=== PATIENT | female | born 1960 | race Caucasian/White ===

== ENCOUNTER 2017-05-10 12:20 | Outpatient (CLI) | payer OTHER, SELFPAY ==
[2017-05-10 12:58] LABS: #Basophils 0.2 thou/uL (0.0-0.2); #Eosinphils 0.2 thou/uL (0.0-0.7); #Lymphocytes 2.9 thou/uL (1.20-3.40); #Monocytes 0.8 thou/uL (0.11-0.59); #Neutrophils 12.4 thou/uL (1.40-6.50); %Eosinophils 0.9 % (0.0-10.0); %Lymphocytes 17.4 % (21.0-51.0); %Monocytes 5.1 % (0.0-10.0); %Neutrophils 75.5 % (42.0-75.0); Hemoglobin 13.9 g/dL (12.0-16.0); Mean Corpuscular HGB CONC 32.3 g/dL (32.0-36.0); Mean Corpuscular Hemoglobin 29.1 pg (27.0-31.0); Mean Platelet Volume 7.2 fL (7.4-10.4); Platelet Count 390 thou/uL (130-400); RBC Distribution Width 12.6 % (11.5-14.5); Red Blood Cell (RBC) Count 4.76 mill/uL (4.20-5.40); White Blood Cell (WBC) Count 16.4 thou/uL (4.8-10.8)
[2017-05-10 13:14] LABS: ALT (SGPT) 18 U/L (8-55); AST (SGOT) 15 U/L (5-34); Albumin 4.3 g/dL (3.5-5.0); Alkaline Phosphatase 104 U/L (40-150); Anion Gap 15 mmol/L (10-20); BUN (Urea Nitrogen) 9 mg/dL (9.8-20.1); Bilirubin, Total 0.5 mg/dL (0.2-1.2); Calc. Creatinine Clearance 0 mL/min (70-130); Calcium 9.3 mg/dL (7.8-10.44); Carbon Dioxide 25 mmol/L (22-29); Cardiac Risk 5.4 (Less than 4.5); Chloride 105 mmol/L (98-107); Cholesterol 210 mg/dl (< 200 Desired); Estimated GFR-MDRD 84; Globulin 2.6 g/dL (2.4-3.5); Glucose 85 mg/dL (70-105); HDL Cholesterol 39 mg/dL (>60 Neg Risk); LDL Cholesterol, Calculated 154 mg/dL; Lipase 12 U/L (8-78); Potassium 4.4 mmol/L (3.5-5.1); Protein, Total 6.9 g/dL (6.0-8.3); Sodium 141 mmol/L (136-145); Triglycerides 85 mg/dL (Less than 150)
--- NOTE | 2017-05-10 14:11 | RAD ---
TWO VIEWS CHEST: 05/10/2017 PROVIDED CLINICAL HISTORY: Cervicalgia. COMPARISON: No comparison exams. FINDINGS: The cardiac and mediastinal silhouette is within normal limits. The lungs appear clear. No pleural fluid or pneumothorax apparent. IMPRESSION: No evidence for an acute cardiopulmonary process. POS: OFF
--- NOTE | 2017-05-10 14:17 | RAD ---
TWO VIEWS RIGHT SHOULDER: 05/10/2017 PROVIDED CLINICAL HISTORY: Right shoulder pain. FINDINGS: There is no evidence for fracture. The subacromial space appears preserved. The acromioclavicular j oint demonstrates mild degenerative change. The visualized right lung field appears clear. The merna ohumeral relationship is not well assessed without an axillary or scapular Y view. IMPRESSION: Acromioclavicular joint osteoarthrosis. POS: OFF
--- NOTE | 2017-05-10 14:21 | RAD ---
LEFT SHOULDER RADIOGRAPHS TWO VIEWS: 05/10/2017 PROVIDED CLINICAL HISTORY: Chronic left shoulder pain. FINDINGS: There is no evidence for fracture. The glenohumeral relationship is not well assessed without an axi llary or scapular Y view. The subacromial space appears preserved. The acromioclavicular joint appe ars unremarkable. The visualized left lung field appears free of significant opacity. IMPRESSION: Unremarkable frontal left shoulder radiographs. POS: OFF
== END 2017-05-10 12:21 | disposition home or self-care (01) ==
LOC: MADLABBHPM 12:20
PROVIDERS: ATTEND Family Medicine
DX: M54.2 Cervicalgia (principal); E78.5 Hyperlipidemia, unspecified; R10.12 Left upper quadrant pain
CPT/HCPCS: 71046; 80053; 80061; 83690; 85025

== ENCOUNTER 2017-06-07 11:36 | Outpatient (CLI) | payer OTHER ==
--- NOTE | 2017-06-07 14:18 | RAD ---
FOUR VIEWS OF THE CERVICAL SPINE: Date: 06-07-17 Comparison: 12-04-11 History: Cervical spine pain. FINDINGS: There is osseous fusion of the C3-4 vertebral bodies and facet joints. Frontal imaging demonstrates b ilateral mid cervical spine facet and uncal vertebral osteophyte formation, left greater than right, most prominent at C4-5 and C5-6. No prevertebral soft tissue swelling is seen. There is no anterolisthesis or retrolisthesis noted. C1-2 articulation is not well assessed on frontal imaging secondary to overlapping dental and osseous structures. IMPRESSION: Stable appearance of the cervical spine demonstrating C2-3 fusion and areas of degenerative change. F indings could be better assessed via CT or MRI as clinically warranted. POS: [facility]
== END 2017-06-07 11:37 | disposition home or self-care (01) ==
LOC: MADRAD 11:36
PROVIDERS: ATTEND Family Medicine
DX: M54.2 Cervicalgia (principal); M47.892 Other spondylosis, cervical region; Z98.1 Arthrodesis status
CPT/HCPCS: 72040

== ENCOUNTER 2018-08-30 12:55 | Outpatient (CLI) | payer OTHER ==
[2018-08-30 15:14] LABS: Hemoglobin 13.3 g/dL (12.0-16.0); Mean Corpuscular HGB CONC 32.2 g/dL (32.0-36.0); Mean Corpuscular Volume 86.9 fL (78.0-98.0); Mean Platelet Volume 7.1 fL (7.4-10.4); Platelet Count 329 thou/uL (130-400); RBC Distribution Width 12.7 % (11.5-14.5); Red Blood Cell (RBC) Count 4.75 mill/uL (4.20-5.40); White Blood Cell (WBC) Count 13.5 thou/uL (4.8-10.8)
[2018-08-31 10:09] LABS: Band 7 % (5-11); Eosinophils 1 % (0-10); Lymphocytes 19 % (21-51); MDiff Complete? YES; Monocytes 3 % (0-10); Neutrophil 70 % (42-75)
[2018-08-31 10:10] LABS: Platelet Morphology Comment Appears Adequate
== END 2018-08-30 12:56 | disposition home or self-care (01) ==
LOC: MADLABBHPM 12:55
PROVIDERS: ATTEND Family Medicine
DX: D72.829 Elevated white blood cell count, unspecified (principal)
CPT/HCPCS: 36415; 85007; 85027; 85060

== ENCOUNTER 2018-09-17 16:37 | Emergency (ER) | payer OTHER ==
[~2018-09-17 16:37] MED LIST: Iopamidol 370 76% 100 ML VIAL ONE
[2018-09-17 17:26] LABS: #Basophils 0.1 thou/uL (0.0-0.2); #Eosinphils 0.1 thou/uL (0.0-0.7); #Lymphocytes 2.9 thou/uL (1.20-3.40); #Monocytes 0.6 thou/uL (0.11-0.59); %Basophils 1.4 % (0.0-1.0); %Eosinophils 1.7 % (0.0-10.0); %Lymphocytes 32.8 % (21.0-51.0); Hemoglobin 13.8 g/dL (12.0-16.0); Mean Corpuscular HGB CONC 32.2 g/dL (32.0-36.0); Mean Corpuscular Hemoglobin 27.9 pg (27.0-31.0); Mean Corpuscular Volume 86.6 fL (78.0-98.0); Mean Platelet Volume 7.6 fL (7.4-10.4); Platelet Count 347 thou/uL (130-400); RBC Distribution Width 12.7 % (11.5-14.5); Red Blood Cell (RBC) Count 4.95 mill/uL (4.20-5.40); White Blood Cell (WBC) Count 8.8 thou/uL (4.8-10.8)
[2018-09-17 17:44] LABS: ALT (SGPT) 18 U/L (8-55); AST (SGOT) 13 U/L (5-34); Albumin 4.1 g/dL (3.5-5.0); Alkaline Phosphatase 124 U/L (40-150); Anion Gap 15 mmol/L (10-20); BUN (Urea Nitrogen) 5 mg/dL (9.8-20.1); Bilirubin, Total 0.3 mg/dL (0.2-1.2); Calc. Creatinine Clearance 0 mL/min (70-130); Calcium 8.8 mg/dL (7.8-10.44); Carbon Dioxide 26 mmol/L (22-29); Chloride 105 mmol/L (98-107); Estimated GFR-MDRD 85; Glucose 73 mg/dL (70-105); Potassium 3.8 mmol/L (3.5-5.1); Protein, Total 7.1 g/dL (6.0-8.3); Sodium 142 mmol/L (136-145)
[2018-09-17 17:53] LABS: Bilirubin Negative (Negative); Blood, Urine Negative (Negative); Clarity Clear (Clear); Glucose, Urine (Dipstick) Negative (Negative); Leukocyte Negative (Negative); Nitrite Negative (Negative); Protein, Urine (Dipstick) Negative (Neg-Trace); Urobilinogen 0.2 mg/dL (Less than 2)
[2018-09-17] MEDS ORDERED: Ondansetron PF 4 MG/2 ML Vial ONE (19:36)
--- NOTE | 2018-09-17 20:31 | CT ---
CT ABDOMEN AND PELVIS WITH IV CONTRAST: 09/17/2018 HISTORY: Right lower quadrant abdominal pain for five days. History of colonoscopy on 09/07/2018. COMPARISON: None available. FINDINGS: There is atelectasis versus mild scarring in the region of the lingula and at the inferior aspect of the right upper lobe. Dependent atelectasis is present at each lung base. There is a low density area seen within the anterior aspect, lateral portion of the medial segment, r ight hepatic lobe, likely related to perfusion or focal area of fatty infiltration. There is a subce ntimeter, [id number]-characterize, hypodense lesion in the posterior segment, right hepatic lobe. The portal vein is patent. The spleen, pancreas, bilateral adrenal glands, and left kidney demonstrate a normal CT appearance. There is a subcentimeter, [id number]-characterize, hypodense lesion, inferior pole, right kidney. The urinary bladder has a normal appearance. The opacified bowel is normal in appearance and is normal in caliber. The appendix is visualized and is normal in caliber. The uterus is not visualized, likely related to prior hysterectomy. There is a tiny, fat-containing umbilical hernia. The abdominal aorta is normal in caliber. Minimal vascular calcifications are seen in the infrarenal abdominal aorta and in the right common iliac artery. Mild degenerative changes are seen in the lower thoracic spine. IMPRESSION: 1. No acute findings are seen in the abdomen or pelvis. 2. Subcentimeter, [id number]-[id number]-[id number]-characterize, hypodense lesion, right hepatic lobe, as well as a subc entimeter, [id number]-[id number]-[id number]-characterize, hypodense lesion, inferior pole, right kidney. 3. Hysterectomy. 4. No CT evidence of appendicitis. 5. Colonic diverticulosis involving the ascending colon. POS: [facility]
== END 2018-09-17 20:59 | disposition home or self-care (01) ==
LOC: MADERS 16:37
DX: R10.31 Right lower quadrant pain (principal); K21.9 Gastro-esophageal reflux disease without esophagitis; E78.5 Hyperlipidemia, unspecified; G47.00 Insomnia, unspecified; F41.9 Anxiety disorder, unspecified; F32.9 Major depressive disorder, single episode, unspecified; F17.210 Nicotine dependence, cigarettes, uncomplicated; Z79.899 Other long term (current) drug therapy; Z79.82 Long term (current) use of aspirin
CPT/HCPCS: 74177; 80053; 81003; 83605; 85025; 96374; 99406; J2405; Q9967

== ENCOUNTER 2021-08-31 13:49 | Emergency (ER) | payer OTHER ==
[2021-08-31] MEDS ORDERED: Sodium Chloride 0.9% 1,000 ML ONE (14:54)
[2021-08-31 15:23] LABS: Bilirubin Moderate (Negative); Blood, Urine Negative (Negative); Glucose, Urine (Dipstick) Negative (Negative); Ketone, Urine 15 mg/dL (Negative); Leukocyte Trace (Negative); Nitrite Positive (Negative); Protein, Urine (Dipstick) 30 mg/dL (Neg-Trace); Specific Gravity, Urine 1.015 (1.005-1.030)
[2021-08-31 15:24] LABS: Clarity Hazy (Clear)
[2021-08-31 15:27] LABS: #Basophils 0.1 thou/uL (0.0-0.2); #Lymphocytes 1.5 thou/uL (1.20-3.40); #Monocytes 0.9 thou/uL (0.11-0.59); #Neutrophils 12.4 thou/uL (1.40-6.50); %Basophils 0.5 % (0.0-1.0); %Monocytes 6.1 % (0.0-10.0); %Neutrophils 83.4 % (42.0-75.0); Hemoglobin 15.2 g/dL (12.0-16.0); Mean Corpuscular Volume 81.3 fL (78.0-98.0); Mean Platelet Volume 9.8 fL (7.4-10.4); Platelet Count 242 thou/uL (130-400); RBC Distribution Width 13.5 % (11.5-14.5); Red Blood Cell (RBC) Count 5.85 mill/uL (4.20-5.40); White Blood Cell (WBC) Count 14.8 thou/uL (4.8-10.8)
[2021-08-31 15:29] LABS: Bacteria/HPF 2+ HPF (None Seen); RBC/HPF 0-3 HPF (0-3)
[2021-08-31 15:35] LABS: ALT (SGPT) 85 U/L (8-55); AST (SGOT) 59 U/L (5-34); Albumin 3.9 g/dL (3.5-5.0); Alkaline Phosphatase 107 U/L (40-110); Anion Gap 17 mmol/L (10-20); BUN (Urea Nitrogen) 11 mg/dL (9.8-20.1); Bilirubin, Total 0.7 mg/dL (0.2-1.2); Calc. Creatinine Clearance 0 mL/min (70-130); Calcium 8.6 mg/dL (7.8-10.44); Carbon Dioxide 24 mmol/L (22-29); Chloride 102 mmol/L (98-107); Estimated GFR 77; Globulin 2.9 g/dL (2.4-3.5); Glucose 101 mg/dL (70-105); Magnesium 1.6 mg/dL (1.6-2.6); Potassium 3.4 mmol/L (3.5-5.1); Protein, Total 6.8 g/dL (6.0-8.3); Sodium 140 mmol/L (136-145)
== END 2021-08-31 16:37 | disposition home or self-care (01) ==
LOC: MADERS 13:49
DX: U07.1 COVID-19 (principal); E86.0 Dehydration; R29.700 NIHSS score 0; R42 Dizziness and giddiness; K21.9 Gastro-esophageal reflux disease without esophagitis; E78.5 Hyperlipidemia, unspecified; M19.90 Unspecified osteoarthritis, unspecified site; G47.00 Insomnia, unspecified
CPT/HCPCS: 71045; 80053; 81003; 81015; 83605; 83735; 84443; 84484; 85025; 85379; 87086; 94760; 96360; J7050

== ENCOUNTER 2021-11-24 12:54 | Outpatient (CLI) | payer OTHER | END 2021-11-24 12:55 | disposition home or self-care (01) | LOC: MADULT 12:54 | PROVIDERS: ATTEND Internal Medicine Gastroenterology | DX: R10.9 Unspecified abdominal pain (principal); R93.2 Abnormal findings on diagnostic imaging of liver and biliary tract; R19.8 Other specified symptoms and signs involving the digestive system and abdomen | CPT/HCPCS: 76700 ==

== ENCOUNTER 2022-06-01 12:06 | Outpatient (CLI) | payer OTHER | END 2022-06-01 12:07 | disposition home or self-care (01) | LOC: MADRAD 12:06 | PROVIDERS: ATTEND Internal Medicine | DX: R06.00 Dyspnea, unspecified (principal) | CPT/HCPCS: 71046 ==

== ENCOUNTER 2022-11-30 18:02 | Emergency (ER) | payer OTHER ==
[2022-11-30] MEDS ORDERED: Ketorolac Tromethamine 30 MG/ML VIAL ONE (18:31)
[2022-11-30 18:44] LABS: #Basophils 0.1 thou/uL (0.0-0.2); #Lymphocytes 1.4 thou/uL (1.20-3.40); #Monocytes 0.2 thou/uL (0.11-0.59); #Neutrophils 11.1 thou/uL (1.40-6.50); %Basophils 0.6 % (0.0-1.0); %Eosinophils 0.1 % (0.0-10.0); %Lymphocytes 10.8 % (21.0-51.0); %Monocytes 1.5 % (0.0-10.0); %Neutrophils 87.1 % (42.0-75.0); Hematocrit 43.6 % (36.0-47.0); Hemoglobin 13.9 g/dL (12.0-16.0); Mean Corpuscular HGB CONC 31.9 g/dL (32.0-36.0); Mean Corpuscular Volume 87.9 fl (78.0-98.0); Mean Platelet Volume 7.8 fL (7.4-10.4); Platelet Count 376 10x3/uL (130-400); RBC Distribution Width 13.5 % (11.5-14.5); Red Blood Cell (RBC) Count 4.97 mill/uL (4.20-5.40); White Blood Cell (WBC) Count 12.7 10x3/uL (4.8-10.8)
[2022-11-30 18:49] LABS: INR-International Normal Ratio 0.9; Prothrombin Time 12.7 sec (12.0-14.7)
[2022-11-30 18:55] LABS: Bilirubin Negative (Negative); Blood, Urine Negative (Negative); CAUTI Indications for Culture Pelvic or flank pain; Clarity Cloudy (Clear); Glucose, Urine (Dipstick) Negative (Negative); Ketone, Urine Negative (Negative); Leukocyte Negative (Negative); Nitrite Negative (Negative); Protein, Urine (Dipstick) Negative (Neg-Trace); Specific Gravity, Urine 1.015 (1.005-1.030); Urobilinogen 0.2 mg/dL (Less than 2); pH, Urine 8.5 (5.0-9.0)
[2022-11-30 18:58] LABS: ALT (SGPT) 105 U/L (8-55); AST (SGOT) 115 U/L (5-34); Albumin 3.8 g/dL (3.5-5.0); Alkaline Phosphatase 109 U/L (40-110); Anion Gap 14 mmol/L (10-20); BUN (Urea Nitrogen) 17 mg/dL (9.8-20.1); Bilirubin, Total 0.4 mg/dL (0.2-1.2); Calc. Creatinine Clearance 0 mL/min (70-130); Calcium 9.3 mg/dL (7.8-10.44); Carbon Dioxide 26 mmol/L (22-29); Chloride 101 mmol/L (98-107); Estimated GFR 82; Globulin 3.1 g/dL (2.4-3.5); Glucose 152 mg/dL (70-105); Lipase 19 U/L (8-78); Potassium 4.2 mmol/L (3.5-5.1); Protein, Total 6.9 g/dL (6.0-8.3); Sodium 137 mmol/L (136-145)
[2022-11-30 18:59] LABS: Troponin I Less than 0.010 ng/mL (< 0.028)
[2022-11-30 19:00] LABS: Bacteria/HPF 2+ HPF (None Seen); RBC/HPF None Seen HPF (0-3); WBC/HPF 0-3 HPF (0-3)
[2022-11-30 19:01] LABS: Urine Culture Reflex No No
== END 2022-11-30 20:08 | disposition home or self-care (01) ==
LOC: MADERS 18:02
DX: R10.13 Epigastric pain (principal); M54.6 Pain in thoracic spine; E78.5 Hyperlipidemia, unspecified; G47.00 Insomnia, unspecified; F17.210 Nicotine dependence, cigarettes, uncomplicated; Z79.899 Other long term (current) drug therapy; Z79.82 Long term (current) use of aspirin
CPT/HCPCS: 36415; 74176; 80053; 81001; 83690; 84484; 85025; 85610; 93005; 96374; J1885

== ENCOUNTER 2022-12-02 20:18 | Emergency (ER) | payer OTHER ==
[2022-12-02 21:40] LABS: #Basophils 0.3 thou/uL (0.0-0.2); #Eosinphils 0.2 thou/uL (0.0-0.7); #Lymphocytes 1.7 thou/uL (1.20-3.40); #Monocytes 1.4 thou/uL (0.11-0.59); #Neutrophils 10.7 thou/uL (1.40-6.50); %Basophils 1.9 % (0.0-1.0); %Eosinophils 1.3 % (0.0-10.0); %Lymphocytes 11.6 % (21.0-51.0); %Monocytes 9.8 % (0.0-10.0); %Neutrophils 75.5 % (42.0-75.0); Hematocrit 45.4 % (36.0-47.0); Hemoglobin 14.6 g/dL (12.0-16.0); Mean Corpuscular HGB CONC 32.1 g/dL (32.0-36.0); Mean Corpuscular Hemoglobin 28.2 pg (27.0-31.0); Mean Platelet Volume 8.2 fL (7.4-10.4); Platelet Count 354 10x3/uL (130-400); Red Blood Cell (RBC) Count 5.15 mill/uL (4.20-5.40); White Blood Cell (WBC) Count 14.2 10x3/uL (4.8-10.8)
[2022-12-02 22:01] LABS: ALT (SGPT) 785 U/L (8-55); AST (SGOT) 233 U/L (5-34); Alkaline Phosphatase 232 U/L (40-110); Anion Gap 17 mmol/L (10-20); BUN (Urea Nitrogen) 11 mg/dL (9.8-20.1); Bilirubin, Total 4.7 mg/dL (0.2-1.2); Calc. Creatinine Clearance 0 mL/min (70-130); Calcium 8.8 mg/dL (7.8-10.44); Carbon Dioxide 22 mmol/L (22-29); Chloride 104 mmol/L (98-107); Estimated GFR 84; Globulin 2.8 g/dL (2.4-3.5); Glucose 123 mg/dL (70-105); Lipase 21 U/L (8-78); Potassium 3.9 mmol/L (3.5-5.1); Protein, Total 6.8 g/dL (6.0-8.3); Sodium 139 mmol/L (136-145); Troponin I Less than 0.010 ng/mL (< 0.028)
[2022-12-02] MEDS ORDERED: Morphine 2 MG/ML VIAL ONE (22:09)
[2022-12-02] MEDS ORDERED: Lactated Ringer's 1,000 ML ONE (22:09)
[2022-12-02] MEDS ORDERED: Promethazine HCl 25 MG/ML VIAL ONE (22:09)
[2022-12-03] MEDS ORDERED: metroNIDAZOLE 500 MG/100 ML BAG ONE (00:30)
[2022-12-03] MEDS ORDERED: LevoFLOXacin 750 mg/D5W 150 ml Premix Bag ONE (00:30)
[2022-12-03] MEDS ORDERED: Lactated Ringer's 1,000 ML ONE (01:00)
== END 2022-12-03 03:15 | disposition short-term general hospital (02) ==
LOC: MADERS 20:18
DX: K81.9 Cholecystitis, unspecified (principal); K21.9 Gastro-esophageal reflux disease without esophagitis; E78.5 Hyperlipidemia, unspecified; F17.210 Nicotine dependence, cigarettes, uncomplicated; Z79.899 Other long term (current) drug therapy
CPT/HCPCS: 36415; 71045; 80053; 83605; 83690; 84484; 85025; 87040; 93005; 94760; J1956; J2272; J2550; J7120

== ENCOUNTER 2024-03-12 15:32 | Emergency (ER) | payer OTHER ==
[2024-03-12 15:58] LABS: #Basophils 0.2 thou/uL (0.0-0.2); #Eosinophils 0.2 thou/uL (0.0-0.7); #Monocytes 0.8 thou/uL (0.11-0.59); #Neutrophils 7.7 thou/uL (1.40-6.50); %Basophils 1.7 % (0.0-1.0); %Eosinophils 1.5 % (0.0-10.0); %Monocytes 6.2 % (0.0-10.0); %Neutrophils 59.6 % (42.0-75.0); Hemoglobin 14.7 g/dL (12.0-16.0); Mean Corpuscular HGB CONC 31.2 g/dL (32.0-36.0); Mean Corpuscular Hemoglobin 27.1 pg (27.0-31.0); Mean Platelet Volume 8.4 fL (7.4-10.4); Platelet Count 417 10x3/uL (130-400); RBC Distribution Width 13.8 % (11.5-14.5); White Blood Cell (WBC) Count 12.9 10x3/uL (4.8-10.8)
[2024-03-12 16:18] LABS: ALT (SGPT) 23 U/L (8-55); AST (SGOT) 16 U/L (5-34); Albumin 3.8 g/dL (3.4-4.8); Alkaline Phosphatase 107 U/L (40-110); Anion Gap 17 mmol/L (10-20); BUN (Urea Nitrogen) 11 mg/dL (9.8-20.1); Bilirubin, Total 0.3 mg/dL (0.2-1.2); Calc. Creatinine Clearance 0 mL/min (70-130); Calcium 9.9 mg/dL (7.8-10.44); Carbon Dioxide 23 mmol/L (23-31); Chloride 106 mmol/L (98-107); Estimated GFR 73; Globulin 3.6 g/dL (2.4-3.5); Glucose 88 mg/dL (80-115); Potassium 3.6 mmol/L (3.5-5.1); Protein, Total 7.4 g/dL (5.8-8.1); Sodium 142 mmol/L (136-145)
[2024-03-12 16:19] LABS: Troponin I Less than 0.010 ng/mL (< 0.028)
[2024-03-12] MEDS ORDERED: Aspirin Chewable 81 MG TAB ONE (17:43)
[2024-03-12] MEDS ORDERED: Nitroglycerin 0.4 MG TAB 1 EACH ONE (19:19)
[2024-03-12] MEDS ORDERED: Nitroglycerin 2% Ointment 1 INCH/1 GM Packet ONE (19:19)
[2024-03-12] MEDS ORDERED: Morphine 2 MG/ML VIAL ONE (19:28)
[2024-03-12] MEDS ORDERED: Ondansetron PF 4 MG/2 ML Vial ONE (19:28)
[2024-03-12 19:30] LABS: Troponin I Less than 0.010 ng/mL (< 0.028)
[2024-03-12 22:55] LABS: Troponin I 0.014 ng/mL (< 0.028)
== END 2024-03-12 22:55 | disposition short-term general hospital (02) ==
LOC: MADERS 15:32
DX: R07.2 Precordial pain (principal); E78.5 Hyperlipidemia, unspecified; F17.210 Nicotine dependence, cigarettes, uncomplicated; K21.9 Gastro-esophageal reflux disease without esophagitis; E11.9 Type 2 diabetes mellitus without complications; Z79.84 Long term (current) use of oral hypoglycemic drugs; Z79.899 Other long term (current) drug therapy
CPT/HCPCS: 36415; 71045; 80053; 83880; 84484; 85025; 93005; 96374; 96375; J2272; J2405